=== PATIENT | female | born 1935 | race Caucasian/White ===

== ENCOUNTER 2019-05-30 20:39 | Emergency (ER) | payer SELFPAY ==
[2019-05-30 20:48] VITALS: TEMP 98; BMI 24.5
[2019-05-30] MEDS ORDERED: ACETAMINOPHEN 325 MG TABLET (FP) ONE (23:30)
--- NOTE | 2019-05-30 23:44 | PDOC ---
History of Present Illness - General Chief Complaint: Injury Stated Complaint: LOWER BACK PAIN Time Seen by Provider: 05/30/19 20:57 History Source: Patient Exam Limitations: No Limitations - History of Present Illness Initial Comments: 05/30/19 23:49 83 yo F with a hx of CAD s/p stents, HLD, and HTN presents to the emergency department s/p fall yesterday. Per the patient, she slipped on a frame and landed on a can that was on the ground on her left buttocks. She denies hitting her head and LOC. No other injuries noted. She denies acute change in urinary patterns including dysuria, hematuria, urgency, frequency, and incontinence. Denies stool incontinence. She was able to ambulate to the ED but with assistance. Denies the following antecedent symptoms: dizziness, lightheadedness , chest pain, SOB, palpitations, headache, visual disturbance, and nausea/ vomiting. Allergies: NKDA Meds: Uses aspirin Social: Denies tobacco, alcohol, and substance abuse Past History - Past Medical History Allergies/Adverse Reactions: Allergies Allergy/AdvReac Type Severity Reaction Status Date / Time No Known Allergies Allergy Verified 05/30/19 20:48 Home Medications: Ambulatory Orders Aspirin [ASA -] 81 mg PO DAILY 05/31/19 Atorvastatin Ca [Lipitor] 20 mg PO HS 05/31/19 Losartan Potassium [Cozaar -] 25 mg PO BID 05/31/19 COPD: No HTN: Yes Hypercholesterolemia: Yes - Psycho Social/Smoking Cessation Hx Smoking History: Never smoked Review of Systems - Review of Systems Able to Perform ROS?: Yes Is the patient limited Ken[place] proficient: No Constitutional: No: Chills, Diaphoresis, Fever, Weakness HEENTM: No: Eye Pain, Ear Pain, Nose Pain, Throat Pain, Mouth Pain Respiratory: No: Cough, Shortness of Breath, Hemoptysis Cardiac (ROS): No: Chest Pain, Lightheadedness, Palpitations, Syncope, Chest Tightness ABD/GI: No: Constipated, Diarrhea, Nausea, Rectal Bleeding, Vomiting, Tarry Stools : No: Burning, Dysuria, Hematuria, Incontinence Musculoskeletal: Yes: Back Pain. No: Joint Pain, Neck Pain Integumentary: No: Bruising, Erythema, Rash Neurological: No: Headache, Numbness, Tingling, Tremors Psychiatric: No: Frequent Crying, Change in Appetite Endocrine: No: Unexplained Weight Gain Hematologic/Lymphatic: No: Anemia *Physical Exam - Vital Signs Last Vital Signs Temp Pulse Resp BP Pulse Ox 98 F 73 19 143/59 L 100 05/30/19 20:43 05/30/19 20:43 05/30/19 20:43 05/30/19 20:43 05/30/19 20:43 - Physical Exam General Appearance: Yes: Nourished, Appropriately Dressed. No: Apparent Distress, Intoxicated HEENT: positive: EOMI, MICKEY, Normal Voice, Symmetrical, Pharynx Normal, Hearing Grossly Normal. negative: Pale Conjunctivae, Scleral Icterus (R), Scleral Icterus (L), Muffled/Hoarse voice, Pharyngeal Erythema, Tonsillar Exudate, Tonsillar Erythema, Nasal Congestion, Rhinorrhea, Excessive drooling Neck: positive: Trachea midline, Supple. negative: Tender, Lymphadenopathy (R) , Lymphadenopathy (L), Tender lateral, Tender midline Respiratory/Chest: positive: Lungs Clear, Normal Breath Sounds. negative: Chest Tender, Respiratory Distress, Accessory Muscle Use, Rhonchi, Stridor, Wheezing Cardiovascular: positive: Regular Rhythm, Regular Rate, S1, S2. negative: Systolic Murmur Gastrointestinal/Abdominal: positive: Normal Bowel Sounds, Flat, Soft. negative : Tender, Distended, Guarding, Rebound, Tenderness Lymphatic: negative: Adenopathy Musculoskeletal: positive: Normal Inspection, Vertebral Tenderness (lumbar area (L1-L5). no step offs noted), Other (tenderness to palpation in the left superior gluteus sissy. Straight leg raise negative on left side). negative: CVA Tenderness Extremity: positive: Normal Capillary Refill, Normal Inspection, Normal Range of Motion. 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 negative: EOM Palsy, Facial Droop , Numbness, Sensory Deficit Medical Decision Making - Medical Decision Making 83 yo F with a hx of CAD s/p stents, HLD, and HTN presents to the emergency department s/p fall yesterday. Per the patient, she slipped on a frame and landed on a can that was on the ground on her left buttocks. Initial vitals: Initial Vital Signs Temp Pulse Resp BP Pulse Ox 98 F 73 19 143/59 L 100 05/30/19 20:43 05/30/19 20:43 05/30/19 20:43 05/30/19 20:43 05/30/19 20:43 Work up: patient presents with pain in the lower back. likely to be secondary to msk vs vertebral pathology. will obtain lumbar sacral CT to rule out dislocation/acute fracture. Will also obtain hip/pelvis of the left side to assess for fractures and dislocations. will provide tylenol and lidocaine patch for analgesia. CT negative for acute fractures and dislocations. Xray negative. patient was able to ambulate on her own volition and pain resolved in our department. Dispo: Discharge Discharge - Discharge Information Problems reviewed: Yes Clinical Impression/Diagnosis: Lower back pain Condition: Good Disposition: HOME - Admission No - Follow up/Referral Referrals: Braxton Conley MD [Primary Care Provider] - - Patient Discharge Instructions Patient Printed Discharge Instructions: DI for Low Back Pain Additional Instructions: You were seen in the emergency department for pain in your low back. Please follow up with your primary medical doctor within 1 week after discharge for follow up care and management. Please take tylenol as directed on the label. Please return to the emergency department if you have worsening symptoms or new concerning symptoms. Thank you. - Post Discharge Activity
[2019-05-30] MEDS ORDERED: ACETAMINOPHEN 325 MG TABLET (FP) PO ONE (23:45)
[2019-05-31] MEDS ORDERED: LIDOCAINE 5% TOPICAL PATCH TP ONE (01:04)
--- NOTE | 2019-05-31 01:09 | PDOC ---
Attending Attestation - Resident Resident Name: AntolinMarshall - ED Attending Attestation I have performed the following: I have examined & evaluated the patient, The case was reviewed & discussed with the resident, I agree w/resident's findings & plan, Exceptions are as noted - HPI HPI: 05/31/19 01:07 Ms. Ana Luisa Pagan is an 83 yo F with a hx of CAD s/p stents, HLD, and HTN presents to the emergency department s/p fall yesterday. Patient notes that she accidentally slipped and landed onto her left buttock No head trauma, no LOC No pain in any other location No incontinence She is ambulatory in the emergency department without assistance Denies preceding chest pain, shortness of breath, dizziness, lightheadedness, headache, focal weakness or numbness Allergies: NKDA Meds: Uses aspirin Social: Denies tobacco, alcohol, and substance abuse - Physicial Exam PE: 05/31/19 01:09 General Appearance: Yes: Nourished, Appropriately Dressed, no distress HEENT: EOMI, MICKEY, Normal Voice, Symmetrical, Pharynx Normal, Hearing Grossly Normal Neck: No midline tenderness, no limitation in range of motion Respiratory/Chest: positive: Lungs Clear, Normal Breath Sounds. Cardiovascular: Regular Rhythm, Regular Rate, S1, S2 Gastrointestinal/Abdominal: Normal Bowel Sounds, Flat, Soft, nontender, nondistended Musculoskeletal: Midline lower back tenderness to palpation, no step-offs, no bruising Patient is ambulatory in the emergency department No lacerations noted - Medical Decision Making 05/31/19 01:11 83-year-old female presenting to the emergency department with a mechanical fall and back pain Patient with no limitations in range of motion, patient able to ambulate with no difficulty No signs of head trauma No anticoagulant 05/31/19 01:14 CT: DATE OF SERVICE: 2019-05-31 00:10:42 IMAGES: [id number] EXAM: LUMBAR SPINE CT W/O CONTRAST HISTORY: Trauma COMPARISON: None. FINDINGS: No fracture or subluxation. There are mild degenerative changes. No paraspinal hematoma. Small nonobstructing right renal stone is noted. There is minimal bilateral neuroforaminal narrowing at L4-5 secondary to disc bulging. There is moderate right-sided and mild to moderate left-sided neural frontal narrowing at L5/S1 secondary to lateral osteophytic ridging. IMPRESSION: No fracture. Mild degenerative changes as described above X-ray: 05/31/19 01:18 No fracture dislocation seen. Pubic rami appear intact. We will discharge home. We will give p.o. pain medications as well as Lidoderm patch Follow-up with primary care physician Return to the ER with any other concerns or complaint
[2019-05-31] MEDS ORDERED: LIDOCAINE 5% TOPICAL PATCH ONE (01:12)
[2019-05-31 01:33] VITALS: BP 137/69; PULSE 72
[2019-05-31] MEDS ORDERED: LIDOCAINE PATCH REMOVAL MC SCH (22:00)
== END 2019-05-31 01:28 | disposition home or self-care (01) ==
LOC: JER 20:39 → JERFT 20:39 → JER 05-31 01:28
DX: M54.5 Low back pain (principal); W01.198A Fall on same level from slipping, tripping and stumbling with subsequent striking against other object, initial encounter; Y93.89 Activity, other specified; Y92.89 Other specified places as the place of occurrence of the external cause; Y99.8 Other external cause status; I25.10 Atherosclerotic heart disease of native coronary artery without angina pectoris; I10 Essential (primary) hypertension; Z95.5 Presence of coronary angioplasty implant and graft; R78.5 Finding of other psychotropic drug in blood
CPT/HCPCS: 72131-TC; 72170-TC-FY; 73523-TC-FY; 99281-25

== ENCOUNTER 2019-06-06 22:30 | Emergency (ER) | payer SELFPAY ==
[~2019-06-06 22:30] MED LIST: LIDOCAINE PATCH REMOVAL MC SCH
[2019-06-06 22:38] VITALS: BP 163/70; PULSE 82; TEMP 97.8; BMI 24.5
[2019-06-06] MEDS ORDERED: LIDOCAINE 5% TOPICAL PATCH TP ONE (22:58)
[2019-06-06] MEDS ORDERED: LIDOCAINE 5% TOPICAL PATCH ONE (23:01)
--- NOTE | 2019-06-06 23:02 | PDOC ---
History of Present Illness - General Chief Complaint: Back Pain Stated Complaint: FALL/BACK PAIN Time Seen by Provider: 06/06/19 22:46 History Source: Patient Exam Limitations: No Limitations - History of Present Illness Initial Comments: 06/06/19 22:59 HISTORY OF PRESENT ILLNESS: This is an 83-year-old woman with past medical history of hypertension, hyperlipidemia, VT status post stent presents to the emergency department for reevaluation of left hip pain status post slip and fall. Patient was seen and evaluated in this emergency department and had x- rays and a CAT scan performed which were negative. Patient reports after removing the lidocaine patch the pain has been worse and has progressively worsened over this past few days. She denies any saddle anesthesia, numbness or tingling to lower extremities or pain radiation. Patient has been taken Tylenol as directed with minimal relief of pain. No recent travel or sick contacts. PAST MEDICAL HISTORY: See HPI SURGICAL HISTORY: Denies ALLERGIES: No known drug allergies REVIEW OF SYSTEMS General/Constitutional: Denies fever or chills. Denies weakness, weight change. HEENT: Denies change in vision. Denies ear pain or discharge. Denies sore throat. Cardiovascular: Denies chest pain or shortness of breath. Respiratory: Denies cough, wheezing, or hemoptysis. Gastrointestinal: Denies nausea, vomiting, diarrhea or constipation. Denies rectal bleeding. Genitourinary: Denies dysuria, frequency, or change in urination. Musculoskeletal: See HPI Skin and breasts: Denies rash or easy bruising. Neurologic: Denies headache, vertigo, loss of consciousness, or loss of sensation. Psychiatric: Denies depression or anxiety. Endocrine: Denies increased thirst. Denies abnormal weight change. Hematologic/Lymphatic: Denies anemia, easy bleeding, or history of blood clots. Allergic/Immunologic: Denies hives or skin allergy. Denies latex allergy. PHYSICAL EXAM General Appearance: Well-appearing, appropriately dressed. No apparent distress , no intoxication. HEENT: EOMI, PERRLA, normal ENT inspection, normal voice, TMs normal, pharynx normal. No conjunctival pallor. No photophobia, scleral icterus. Neck: Supple. Trachea midline. No tenderness, rigidity, carotid bruit, stridor , lymphadenopathy, or thyromegaly. Respiratory/Chest: Lungs CTAB. No shortness of breath, chest tenderness, respiratory distress, accessory muscle use. No crackles, rales, rhonchi, stridor , wheezing, dullness Cardiovascular: RRR. S1, S2. No JVD, murmur, bradycardia, tachycardia. Vascular Pulses: Dorsalis-Pedis (R): 2+, Dorsalis-Pedis (L): 2+ Gastrointestinal/Abdominal: Normal bowel sounds. Abdomen soft, non-distended. No tenderness or rebound tenderness. No organomegaly, pulsatile mass, guarding, hernia, hepatomegaly, splenomegaly. Lymphatic: No adenopathy, tenderness. Musculoskeletal/Extremities: Normal inspection. FROM of all extremities, normal capillary refill. Pelvis Stable. No CVA tenderness. No tenderness to extremities, pedal edema, swelling, erythema or deformity. Left iliac crest tender to palpation. No bony deformities noted. Integumentary: Appropriate color, dry, warm. 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 Fully oriented, alert. Appropriate mood/affect. Motor strength 5/5. No appreciable EOM palsy, facial droop or sensory deficit. Ambulatory with a limp. Past History - Past Medical History Allergies/Adverse Reactions: Allergies Allergy/AdvReac Type Severity Reaction Status Date / Time No Known Allergies Allergy Verified 06/06/19 22:33 Home Medications: Ambulatory Orders Aspirin [ASA -] 81 mg PO DAILY 05/31/19 Atorvastatin Ca [Lipitor] 20 mg PO HS 05/31/19 Losartan Potassium [Cozaar -] 25 mg PO BID 05/31/19 Lidocaine 5% Patch [Lidoderm -] 1 patch TP DAILY #7 patch 06/07/19 COPD: No HTN: Yes Hypercholesterolemia: Yes - Surgical History Cardiac Surgery: Yes (stents) - Psycho Social/Smoking Cessation Hx Smoking History: Former smoker Have you smoked in the past 12 months: No If you are a former smoker, when did you quit?: 40 years ago Information on smoking cessation initiated: No *Physical Exam - Vital Signs Last Vital Signs Temp Pulse Resp BP Pulse Ox 97.8 F 82 20 163/70 98 06/06/19 22:33 06/06/19 22:33 06/06/19 22:33 06/06/19 22:33 06/06/19 22:33 Medical Decision Making - Medical Decision Making 06/06/19 23:06 A/P: 83-year-old woman 10 due to left hip pain status post fall 05/31 Patient had negative x-rays of the hip and pelvis as well as a negative CAT scan of the lumbar spine. Given patient's persistent pain 1 week removed from the injury I will get a CAT scan of the left hip and femur to rule out occult fracture. Lidoderm 5% topical now Tylenol 650 mg orally now Reassess 06/07/19 00:31 CAT scan as read by imaging on-call: No fracture identified. 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 No muscle edema. No pelvic free fluid. Discharge home with orthopedic follow-up and prescription for lidocaine patches. I discussed the physical exam findings, ancillary test results and final diagnoses with the patient. I answered all of the patient's questions. The patient was satisfied with the care received and felt comfortable with the discharge plan and treatment plan. The patient will call their primary care physician within 24 hours to arrange follow-up and will return to the Emergency Department with any new, persistent or worsening symptoms. Discharge - Discharge Information Problems reviewed: Yes Clinical Impression/Diagnosis: Hip pain, left Condition: Stable Disposition: HOME - Admission No - Additional Discharge Information Prescriptions: Lidocaine 5% Patch [Lidoderm -] 1 patch TP DAILY #7 patch - Follow up/Referral Referrals: Alonzo Castañeda MD [Staff Physician] - - Patient Discharge Instructions Additional Instructions: CAT scan today showed no fractures. Continue to take Tylenol as previously recommended. You have been sent a prescription for lidocaine patches to apply to the area. Please cotton picker operator this prescription and follow the directions. These patches may not be covered by insurance but are available [id number] for approximately $10. You have been given a referral for an orthopedist. Call for appointment for evaluation of continued pain. Return to the emergency department for any new or worsening symptoms. Thank you very much for choosing us to provide your emergent health care needs. La tomografa computarizada de hoy no mostr fracturas. Contine tomando Tylenol meredith se recomend previamente. Se le crowley enviado ivory receta para parches de lidocana para aplicar en el kevin. Recoja esta receta y siga las instrucciones. Es posible que estos parches no estn cubiertos por el seguro, clotilde estn disponibles sin receta por aproximadamente $ 10. Le dieron ivory referencia para un ortopedista. Solicite ivory ken para evaluar el dolor continuo. Regrese al departamento de emergencias por cualquier sntoma nuevo o que empeore. Muchas destinee por elegirnos para satisfacer curt necesidades de atencin mdica de emergencia. - Post Discharge Activity
[2019-06-06] MEDS ORDERED: ACETAMINOPHEN 325 MG TABLET (FP) ONE (23:04)
[2019-06-06] MEDS ORDERED: ACETAMINOPHEN 325 MG TABLET (FP) PO ONE (23:05)
--- NOTE | 2019-06-07 00:41 | PDOC ---
*Physical Exam - Vital Signs Last Vital Signs Temp Pulse Resp BP Pulse Ox 97.8 F 82 20 163/70 98 06/06/19 22:33 06/06/19 22:33 06/06/19 22:33 06/06/19 22:33 06/06/19 22:33 ED Treatment Course - Medications Given in the ED: ED Medications Discontinued Medications Generic Name Dose Route Start Last Admin Trade Name Jill PRN Reason Stop Dose Admin Acetaminophen 650 mg 06/06/19 23:05 06/06/19 23:07 Tylenol - PO 06/06/19 23:06 650 mg ONCE ONE Administration Lidocaine 1 patch 06/06/19 22:58 06/06/19 23:07 Lidoderm Patch - TP 06/06/19 22:59 1 patch ONCE ONE Administration Medical Decision Making - Medical Decision Making 06/07/19 00:41 Case reviewed, agree with assessment and plan Discharge - Discharge Information Problems reviewed: Yes Clinical Impression/Diagnosis: Hip pain, left Condition: Stable Disposition: HOME - Additional Discharge Information Prescriptions: Lidocaine 5% Patch [Lidoderm -] 1 patch TP DAILY #7 patch - Follow up/Referral Referrals: Alonzo Castañeda MD [Staff Physician] - - Patient Discharge Instructions Additional Instructions: CAT scan today showed no fractures. Continue to take Tylenol as previously recommended. You have been sent a prescription for lidocaine patches to apply to the area. Please chicken picker this prescription and follow the directions. These patches may not be covered by insurance but are available [id number] for approximately $10. You have been given a referral for an orthopedist. Call for appointment for evaluation of continued pain. Return to the emergency department for any new or worsening symptoms. Thank you very much for choosing us to provide your emergent health care needs. La tomografa computarizada de hoy no mostr fracturas. Contine tomando Tylenol meredith se recomend previamente. Se le crowley enviado ivory receta para parches de lidocana para aplicar en el kevin. Recoja esta receta y siga las instrucciones. Es posible que estos parches no estn cubiertos por el seguro, clotilde estn disponibles sin receta por aproximadamente $ 10. Le dieron ivory referencia para un ortopedista. Solicite ivory ken para evaluar el dolor continuo. Regrese al departamento de emergencias por cualquier sntoma nuevo o que empeore. Muchas destinee por elegirnos para satisfacer curt necesidades de atencin mdica de emergencia. - Post Discharge Activity
== END 2019-06-07 01:03 | disposition home or self-care (01) ==
LOC: JER 22:30
DX: M25.552 Pain in left hip (principal); M13.852 Other specified arthritis, left hip; M13.861 Other specified arthritis, right knee; M13.862 Other specified arthritis, left knee; W19.XXXD Unspecified fall, subsequent encounter; I25.10 Atherosclerotic heart disease of native coronary artery without angina pectoris; I10 Essential (primary) hypertension; E78.00 Pure hypercholesterolemia, unspecified; E78.5 Hyperlipidemia, unspecified
CPT/HCPCS: 73700-TC-RT; 99283-25

== ENCOUNTER 2022-05-26 07:48 | Observation (INO) | payer OTHER ==
[2022-05-26] MEDS ORDERED: SODIUM CHLORIDE 0.9% 500 ML INFUS.BAG IV ONE (08:34)
[2022-05-26 09:28] LABS: BASO % 0.8 % (0-2.0); EOS % 1.2 % (0-4.5); HEMATOCRIT 40.6 % (32.4-45.2); HEMOGLOBIN 13.3 GM/dL (10.7-15.3); LYMPH % 28.8 % (8-40); MCH 29.4 pg (25.7-33.7); MCHC 32.7 g/dl (32.0-36.0); MEAN CELL VOLUME 89.9 fl (80-96); MEAN PLT VOLUME 8.9 fl (7.5-11.1); MONO % 5.9 % (3.8-10.2); NEUT % 63.3 % (42.8-82.8); PLATELET COUNT 247 10^3/uL (134-434); RBC 4.52 M/mm3 (3.60-5.2); RDW 12.9 % (11.6-15.6); WHITE BLOOD COUNT 6.4 K/mm3 (4.0-10.0)
[2022-05-26 09:34] LABS: INR 1.09 (0.83-1.09); PROTHROMBIN TIME (PATIENT) 12.6 SEC (9.7-13.0)
[2022-05-26 09:36] LABS: ACTIVATED PTT 32.8 SECONDS (25.2-36.5)
[2022-05-26 09:48] LABS: EPI CELLS 4 /uL (0-25.1); HYALINE CASTS 0 /uL (0-3.1); PH,URINE 7.5 (5.0-8.0); URINE APPEARANCE CLEAR; URINE BACTERIA 10 /uL (0-1359); URINE BILIRUBIN NEGATIVE (NEGATIVE); URINE COLOR YELLOW; URINE GLUCOSE (UA) NEGATIVE (NEGATIVE); URINE KETONE NEGATIVE (NEGATIVE); URINE LEUK ESTERASE 1+ (NEGATIVE); URINE NITRITE NEGATIVE (NEGATIVE); URINE PROTEIN NEGATIVE (NEGATIVE); URINE RBC 33 /uL (0-23.9); URINE UROBILINOGEN 0.2 mg/dL (0.2-1.0); URINE WBC 32 /uL (0-25.8)
[2022-05-26 09:49] LABS: ALBUMIN 3.6 g/dl (3.4-5.0); CALCIUM 9.2 mg/dL (8.5-10.1)
[2022-05-26 09:52] LABS: CREATININE 0.7 mg/dL (0.55-1.3)
[2022-05-26 09:54] LABS: BILIRUBIN,TOTAL 0.7 mg/dL (0.2-1); TOT PROT 6.9 g/dl (6.4-8.2)
[2022-05-26] MEDS ORDERED: cefTRIAXone SODIUM 1 GM VIAL ONE (10:27)
[2022-05-26 12:31] VITALS: BMI 20.9
[2022-05-26] MEDS: amLODIPine BESYLATE 5 MG TABLET (FP) PO SCH (15:01)
[2022-05-26] MEDS: MOXIFLOXACIN HCL 0.5% OPHTHALMIC 3 ML BOTTLE OD SCH (21:16)
[2022-05-26] MEDS: ATORVASTATIN CA 20 MG TABLET (FP) PO SCH (21:16)
[2022-05-26] MEDS: prednisoLONE ACETATE 1% OPHTH SUSP 5 ML BOTTLE OU SCH (22:26)
[2022-05-27] MEDS: CEFTRIAXONE 1 GM in DEXTROSE 5%-WATER - 50 ML IVPB SCH (12:47)
[2022-05-27] MEDS: ENOXAPARIN NA (PORCINE) 40 MG/0.4 ML DISP.SYRIN SQ SCH (12:47)
[2022-05-27] MEDS: metoPROLOL SUCCINATE 25 MG TAB.SR.24H (FP) PO SCH (12:48)
[2022-05-27] MEDS: amLODIPine BESYLATE 5 MG TABLET (FP) PO SCH (12:49)
[2022-05-27] MEDS: ASPIRIN 81 MG CHEWABLE TABLETS PO SCH (12:49)
[2022-05-27] MEDS: LOSARTAN POTASSIUM 50 MG TABLET PO SCH (12:49)
[2022-05-27] MEDS: PANTOPRAZOLE 20 MG TABLET PO SCH (12:49)
[2022-05-27] MEDS: prednisoLONE ACETATE 1% OPHTH SUSP 5 ML BOTTLE OU SCH ×2 (12:50→22:36)
[2022-05-27] MEDS: KETOROLAC TROMETHAMINE 0.5% EYE DROP 1 DROP DROPS OS SCH (12:50)
[2022-05-27] MEDS: MOXIFLOXACIN HCL 0.5% OPHTHALMIC 3 ML BOTTLE OD SCH ×2 (12:50→22:37)
[2022-05-27 22:36] VITALS: PULSE 71
[2022-05-27] MEDS: ATORVASTATIN CA 20 MG TABLET (FP) PO SCH (22:36)
[2022-05-28 06:10] VITALS: BP 120/64; RESP 18; TEMP 98.8
[2022-05-28] MEDS: ASPIRIN 81 MG CHEWABLE TABLETS PO SCH (09:30)
[2022-05-28] MEDS: metoPROLOL SUCCINATE 25 MG TAB.SR.24H (FP) PO SCH (09:31)
[2022-05-28] MEDS: LOSARTAN POTASSIUM 50 MG TABLET PO SCH (09:31)
[2022-05-28] MEDS: amLODIPine BESYLATE 5 MG TABLET (FP) PO SCH (09:31)
[2022-05-28] MEDS: PANTOPRAZOLE 20 MG TABLET PO SCH (09:31)
[2022-05-28] MEDS: CEFTRIAXONE 1 GM in DEXTROSE 5%-WATER - 50 ML IVPB SCH (09:32)
[2022-05-28] MEDS: ENOXAPARIN NA (PORCINE) 40 MG/0.4 ML DISP.SYRIN SQ SCH (09:32)
[2022-05-28] MEDS: MOXIFLOXACIN HCL 0.5% OPHTHALMIC 3 ML BOTTLE OD SCH (09:49)
[2022-05-28] MEDS: prednisoLONE ACETATE 1% OPHTH SUSP 5 ML BOTTLE OU SCH (09:49)
[2022-05-28] MEDS: KETOROLAC TROMETHAMINE 0.5% EYE DROP 1 DROP DROPS OS SCH (09:50)
== END 2022-05-28 15:45 | disposition home or self-care (01) ==
LOC: JER 07:48 → JERBED 10:27 → J7W 11:53
PROVIDERS: ADMIT Internal Medicine; ATTEND Internal Medicine
PROC: 3E03329 Introduction of Other Anti-infective into Peripheral Vein, Percutaneous Approach (ICD-10-PCS; principal; 2022-05-26)
PROC: 3E023GC Introduction of Other Therapeutic Substance into Muscle, Percutaneous Approach (ICD-10-PCS; 2022-05-26)
PROC: 3E0337Z Introduction of Electrolytic and Water Balance Substance into Peripheral Vein, Percutaneous Approach (ICD-10-PCS; 2022-05-26)
DX: G45.9 Transient cerebral ischemic attack, unspecified (principal); I25.10 Atherosclerotic heart disease of native coronary artery without angina pectoris; E78.5 Hyperlipidemia, unspecified; Z87.891 Personal history of nicotine dependence; Z95.5 Presence of coronary angioplasty implant and graft; G92.8 Other toxic encephalopathy; N39.0 Urinary tract infection, site not specified; M79.606 Pain in leg, unspecified
CPT/HCPCS: 0241U-QW; 36415; 70450-TC; 71045-TC-FY; 80053; 80061; 81003; 82962; 83036; 84484; 85025; 85610; 85730; 86850; 86900; 86901; 93005; 93010; 93306-TC; 93880-TC; 96365; 96372; 96375; 97116-GP; 97161-GP; 99285-25; G0378

== ENCOUNTER 2022-08-07 00:09 | Emergency (ER) | payer OTHER ==
[2022-08-07 00:30] VITALS: BP 134/69; PULSE 77; RESP 18; TEMP 98.2
[2022-08-07 00:41] VITALS: BMI 32.0
[2022-08-07 01:10] LABS: BASO % 1.4 % (0-2.0); EOS % 1.4 % (0-4.5); HEMATOCRIT 39.4 % (32.4-45.2); HEMOGLOBIN 12.8 GM/dL (10.7-15.3); LYMPH % 34.4 % (8-40); MCH 29.3 pg (25.7-33.7); MCHC 32.6 g/dl (32.0-36.0); MEAN CELL VOLUME 89.9 fl (80-96); MEAN PLT VOLUME 8.8 fl (7.5-11.1); MONO % 6.1 % (3.8-10.2); NEUT % 56.7 % (42.8-82.8); PLATELET COUNT 225 10^3/uL (134-434); RBC 4.38 M/mm3 (3.60-5.2); RDW 13.4 % (11.6-15.6); WHITE BLOOD COUNT 8.9 K/mm3 (4.0-10.0)
[2022-08-07 01:22] LABS: INR 1.07 (0.83-1.09); PROTHROMBIN TIME (PATIENT) 12.3 SEC (9.7-13.0)
[2022-08-07 01:31] LABS: CALCIUM 9.1 mg/dL (8.5-10.1)
[2022-08-07 01:32] LABS: ALBUMIN 3.5 g/dl (3.4-5.0); BLOOD UREA NITROGEN 14.6 mg/dL (7-18)
[2022-08-07 01:35] LABS: CREATININE 0.7 mg/dL (0.55-1.3)
[2022-08-07 01:36] LABS: BILIRUBIN,TOTAL 0.4 mg/dL (0.2-1); TOT PROT 7.1 g/dl (6.4-8.2)
[2022-08-07] MEDS ORDERED: ALBUTEROL SO4 HFA INHALER IH ONE ×2 (04:59→05:07)
== END 2022-08-07 06:00 | disposition home or self-care (01) ==
LOC: JER 00:09
DX: J02.9 Acute pharyngitis, unspecified (principal); R06.02 Shortness of breath
CPT/HCPCS: 0241U-QW; 36415; 71045-TC-FY; 71275-TC; 80053; 84484; 85025; 85610; 85730; 93005; 93010; 99285-25; Q9967

== ENCOUNTER 2023-01-06 07:17 | Emergency (ER) | payer OTHER ==
[2023-01-06 07:31] VITALS: BMI 22.1
[2023-01-06 07:41] VITALS: TEMP 98.1
[2023-01-06] MEDS ORDERED: ACETAMINOPHEN 1000 MG/100 ML BAG IVPB ONE (08:24)
[2023-01-06 08:26] LABS: BASO % 1.2 % (0-2.0); EOS % 1.7 % (0-4.5); HEMATOCRIT 38.5 % (32.4-45.2); LYMPH % 35.7 % (8-40); MCHC 33.7 g/dl (32.0-36.0); MEAN CELL VOLUME 89.2 fl (80-96); MEAN PLT VOLUME 8.7 fl (7.5-11.1); MONO % 5.7 % (3.8-10.2); NEUT % 55.7 % (42.8-82.8); PLATELET COUNT 294 10^3/uL (134-434); RBC 4.32 M/mm3 (3.60-5.2); RDW 13.1 % (11.6-15.6); WHITE BLOOD COUNT 7.8 K/mm3 (4.0-10.0)
[2023-01-06] MEDS ORDERED: ACETAMINOPHEN INJECTION 100 ML IVPB ONE (08:37)
[2023-01-06 09:03] LABS: EPI CELLS 15 /uL (0-25.1); HYALINE CASTS 0 /uL (0-3.1); PH,URINE 7.5 (5.0-8.0); URINE APPEARANCE CLEAR; URINE BACTERIA 35 /uL (0-1359); URINE BILIRUBIN NEGATIVE (NEGATIVE); URINE COLOR YELLOW; URINE GLUCOSE (UA) NEGATIVE (NEGATIVE); URINE KETONE NEGATIVE (NEGATIVE); URINE LEUK ESTERASE 2+ (NEGATIVE); URINE NITRITE NEGATIVE (NEGATIVE); URINE PROTEIN NEGATIVE (NEGATIVE); URINE RBC 21 /uL (0-23.9); URINE UROBILINOGEN 0.2 mg/dL (0.2-1.0); URINE WBC 66 /uL (0-25.8)
[2023-01-06 09:19] LABS: POTASSIUM 4.1 mmol/L (3.5-5.1)
[2023-01-06 09:21] LABS: CALCIUM 9.8 mg/dL (8.5-10.1)
[2023-01-06 09:22] LABS: ALBUMIN 3.9 g/dl (3.4-5.0); BLOOD UREA NITROGEN 13.9 mg/dL (7-18)
[2023-01-06 09:25] LABS: CREATININE 0.7 mg/dL (0.55-1.3)
[2023-01-06 09:26] LABS: ANISOCYTOSIS 0; BILIRUBIN,TOTAL 0.5 mg/dL (0.2-1); MACROCYTOSIS 0; TOT PROT 7.4 g/dl (6.4-8.2)
[2023-01-06] MEDS ORDERED: KETOROLAC TROMETHAMINE 15 MG/ML VIAL IVPUSH ONE (09:27)
[2023-01-06] MEDS ORDERED: KETOROLAC TROMETHAMINE 15 MG/ML VIAL ONE (09:35)
[2023-01-06] MEDS ORDERED: CEFTRIAXONE 1 GM in DEXTROSE 5%-WATER - 100 ML IVPB ONE (11:05)
[2023-01-06] MEDS ORDERED: CEFTRIAXONE 1 GM/50 ML BAG ONE (12:05)
[2023-01-06] MEDS ORDERED: DOCUSATE SODIUM 100 MG CAPSULE (FP) PO ONE ×2 (12:25→13:05)
[2023-01-06] MEDS ORDERED: LIDOCAINE 5% TOPICAL PATCH TP ONE (13:34)
[2023-01-06] MEDS ORDERED: LIDOCAINE 5% TOPICAL PATCH ONE (14:38)
[2023-01-06 14:41] VITALS: BP 150/69; PULSE 80; RESP 18
[2023-01-06] MEDS ORDERED: LIDOCAINE PATCH REMOVAL MC SCH (22:00)
== END 2023-01-06 15:36 | disposition home or self-care (01) ==
LOC: JER 07:17
PROC: 3E03329 Introduction of Other Anti-infective into Peripheral Vein, Percutaneous Approach (ICD-10-PCS; principal; 2023-01-06)
PROC: 3E033GC Introduction of Other Therapeutic Substance into Peripheral Vein, Percutaneous Approach (ICD-10-PCS; 2023-01-06)
PROC: 3E033GC Introduction of Other Therapeutic Substance into Peripheral Vein, Percutaneous Approach (ICD-10-PCS; 2023-01-06)
DX: R10.9 Unspecified abdominal pain (principal); N39.0 Urinary tract infection, site not specified; M25.551 Pain in right hip
CPT/HCPCS: 36415; 72131-TC; 72170-TC-FY; 73521-TC-FY; 73700-TC-RT; 80053; 81003; 85025; 87086; 87186; 96365; 96375; 99285-25